=== PATIENT | male | born 1950 | race Caucasian/White ===

== ENCOUNTER → 2016-12-05 | Outpatient (CLI) | payer BC ==
[~2016-12-05] MED LIST: GADAVIST IV PRN
[2016-12-05 11:44] LABS: ISTAT HEMOGLOBIN 16.7 g/dl (14.0-18.0); ISTAT IONIZED CALCIUM 1.29 mmol/l (1.12-1.32)
--- NOTE | 2016-12-05 12:48 | DIAGNOSTIC IMAGING REPORT ---
Brain AND INTERNAL AUDITORY CANAL MRI WITH AND WITHOUT CONTRAST HISTORY: Tinnitus. *IAC'S* HEARING LOSS L EAR TECHNIQUE: Multiplanar multisequence MRI of the brain and internal auditory canals were performed both before and after the intravenous administration of contrast. COMPARISON STUDY: None. FINDINGS: There are no areas of restricted diffusion to suggest acute infarction. The midline structures are intact. The paranasal sinuses are clear. The mastoid air cells are clear. The ventricles and sulci are within normal limits for age. There is no mass, hematoma, midline shift. The major vascular flow-voids at the skull base are well maintained. Postcontrast sequences show no areas of abnormal enhancement. No masses or abnormal enhancement within the internal auditory canals. The 7th and 8th cranial nerves are normal in course and caliber IMPRESSION: No acute intracranial abnormality. Normal bilateral internal auditory canals. Electronically signed by: Medhat Cox M.D. 12/05/2016 12:47 PM Dictated Date/Time: 12/05/2016 12:36 PM
== END | disposition home or self-care (01) ==
LOC: C.MRI 11:01
PROVIDERS: ATTEND Otolaryngology
DX: H90.5 Unspecified sensorineural hearing loss (principal)

== ENCOUNTER 2017-04-06 22:37 | Emergency (ER) | payer BC ==
[~2017-04-06] VITALS: Ht 177.8 cm; Wt 100.0 kg
[2017-04-06 22:55] VITALS: TEMP 36.8; Ht 177.8 cm; Wt 100.0 kg
--- NOTE | 2017-04-06 23:56 | EMERGENCY ROOM VISIT NOTE ---
History Report prepared by Raquel: Obdulio Howard Under the Supervision of: Christos Mckenna.O. First contact with patient: 23:48 Chief Complaint: HEAD INJURY (MINOR) Stated Complaint: HIT HEAD ON ICE History of Present Illness The patient is a 67 year old male who presents to the Emergency Room with complaints of headache and neck pain beginning after a fall several hours ago. He notes his pain radiates down through his shoulders down to his forearms. The patient reports he tried taking Advil, but it did not help his symptoms. The patient states he was getting out of the car earlier and slipped on ice. He reports he fell and hit his head. The patient notes he did not lose consciousness, but he does not remember anything that occurred during the incident and an hour after. She states after that his memory returned and he answered questions normally. The patient's states he developed a bloody nose after falling. This has since resolved. She reports he tried to get up and slipped and fell again. The notes he does not remember have two people help him up. He denies dizziness, lightheadedness, blurry vision, nausea, double vision, a history of concussions, numbness, tinging, chest pain, abdominal pain, hip pain, knee pain, ankle pain, and taking blood thinners other than aspirin. Source of History: patient Onset: few hours ago Position: shoulder (bilateral) Associated Symptoms: No chest pain, No nausea, No abdominal pain, No numbness Note: Associated symptoms: hitting his head, pain radiating to his forearms, no memory of the accident and 1 hour after Denies: dizziness, lightheadedness, blurry vision, double vision, a history of concussions, tinging, hip pain, knee pain, ankle pain Review of Systems See HPI for pertinent positives & negatives. A total of 10 systems reviewed and were otherwise negative. Past Medical & Surgical Medical Problems: (1) No Known Active Medical Problems Family History Hypertension Kidney disease Kidney stones Social History Smoking Status: Never Smoker Smokeless Tobacco Use: No Alcohol Use: none Marital Status: Housing Status: lives with significant other Occupation Status: employed Current/Historical Medications Scheduled B-Complex Vitamins (Vitamin B Complex), 1 TAB PO DAILY Carbidopa/Levodopa (Sinemet 25MG/100MG), 2 TABS PO QID Carbidopa/Levodopa (Sinemet Cr 25MG/100MG), 1 TAB PO HS Flaxseed (Linseed) (Flax Seed Oil), 1 CAP PO DAILY Garlic (Garlic), 2,000 MG PO DAILY Melatonin (Melatonin Maximum Strengt), 1-2 TAB PO HS Multivitamin (Multivitamin), 1 TAB PO DAILY Benkelman-3 Fatty Acids (Fish Oil), 1,000 MG PO DAILY Rasagiline Mesylate (Azilect), 1 MG PO DAILY Simvastatin (Zocor), 20 MG PO QPM Allergies Coded Allergies: No Known Allergies (Unverified , 12/05/16) Physical Exam Vital Signs Date Time Temp Pulse Resp B/P (MAP) Pulse Ox O2 Delivery O2 Flow Rate FiO2 04/07/17 02:00 70 16 139/87 95 04/07/17 00:37 64 20 142/81 97 Room Air 04/06/17 22:55 36.8 72 20 152/87 95 Room Air Physical Exam GENERAL: alert, well appearing, well nourished, no distress, non-toxic EYE EXAM: normal conjunctiva, PERRL and EOM's grossly intact HEAD: Normocephalic and atraumatic OROPHARYNX: no exudate, no erythema, lips, buccal mucosa, and tongue normal and mucous membranes are moist NECK: supple, no nuchal rigidity, no adenopathy, non-tender LUNGS: Clear to auscultation. Normal chest wall mechanics HEART: no murmurs, S1 normal and S2 normal ABDOMEN: abdomen soft, non-tender, normo-active bowel sounds, no masses, no rebound or guarding. BACK: Back is symmetrical on inspection and there is no deformity, no midline tenderness, no CVA tenderness. SKIN: no rashes and no bruising UPPER EXTREMITIES: upper extremities are grossly normal. 5 out of 5 strength bilateral upper extremities, normal sensation, full range of motion, normal pulses. No reproducible pain on range of motion testing or palpation. No evidence of trauma or injury to upper extremity bilaterally. LOWER EXTREMITIES: No pitting edema. No evidence of trauma or injury, full range of motion, normal pulses. NEURO EXAM: Normal sensorium, cranial nerves II-XII intact, normal speech, no weakness of arms, no weakness of legs. Medical Decision & Procedures ER Provider Diagnostic Interpretation: CT:Per my review, radiologist interpretation. CT C SPINE: Degenerative changes without evidence of acute fracture. Heterogeneous thyroid. Radiologist: Carmen Martínez MD Study ready at 0044 and initial results transmitted at 0134. CT HEAD: No intracranial hemorrhage or skull fracture. Radiologist: Carmen Martínez MD Study ready at 0044 and initial results transmitted at 0130. ED Course 2351: The patient was evaluated in room C10. A complete history and physical exam was performed. 0148: Upon reevaluation, the patient is feeling better. I discussed the findings and the treatment plan with the patient. He verbalizes agreement and understanding. The patient was discharged home. Medical Decision Differential diagnoses include major intracranial, cervical, spinal, thoracic, abdominal, pelvic and neurologic injury. Fracture, contusion, sprain, strain, laceration, abrasions included as well. Patient well-appearing here, no focal neuro deficits noted. No obvious evidence of trauma on bedside exam, imaging reassuring. Vital signs stable throughout. Discussed with patient and follow-up with family doctor as a precaution, symptoms of concussion, symptoms to watch and return for, postconcussion syndrome, they verbalized understanding were agreeable with plan. Patient not anticoagulated and I feel low risk for occult intracranial hemorrhage. I do not suspect any additional occult traumatic injury. No obvious evidence of spinal cord injury, CT negative, full range of motion, normal strength, normal sensory exam in upper extremities also. No symptoms of weakness or paresthesias in any extremity. Head Trauma GCS Score: 15 Medication Reconcilliation Current Medication List: was personally reviewed by me Blood Pressure Screening Patient's blood pressure: Elevated blood pressure Blood pressure disposition: Elevated BP felt to be situational Impression Primary Impression: Closed head injury Additional Impression: Concussion Scribe Attestation The scribe's documentation has been prepared under my direction and personally reviewed by me in its entirety. I confirm that the note above accurately reflects all work, treatment, procedures, and medical decision making performed by me. Departure Information Dispostion Home / Self-Care Referrals Collin Elder M.D. (PCP) Forms HOME CARE DOCUMENTATION FORM, IMPORTANT VISIT INFORMATION Patient Instructions ED Concussion, ED Head Injury Closed, [facility] Additional Instructions Please drink plenty of water to stay well-hydrated. You may use Tylenol and ibuprofen as needed for pain. Please follow up with your family doctor as a precaution. If you have any worsening headaches, develop dizziness, vision changes, neck or back pain, feel unsteady when he walk, nausea or vomiting, or you've any other new concerns, please return to the emergency room. Problem Qualifiers Primary Impression: Closed head injury Encounter type: initial encounter Qualified Codes: S09.90XA - Unspecified injury of head, initial encounter Additional Impression: Concussion Encounter type: initial encounter Loss of consciousness presence/duration: without LOC Qualified Codes: S06.0X0A - Concussion without loss of consciousness, initial encounter
[2017-04-07] MEDS ORDERED: CARB25TA12 PO (00:08)
[2017-04-07] MEDS ORDERED: CARB25TA16 PO (00:08)
[2017-04-07] MEDS ORDERED: OMEG10002 PO (00:09)
[2017-04-07] MEDS ORDERED: [UNRECOGNIZED DRUG - CODE] PO (00:09)
[2017-04-07] MEDS ORDERED: FLAX1CAP11 PO (00:09)
[2017-04-07] MEDS ORDERED: MELATAB2 PO (00:11)
[2017-04-07] MEDS ORDERED: MULT-506 PO (00:11)
[2017-04-07] MEDS ORDERED: B-COTAB18 PO (00:11)
[2017-04-07] MEDS ORDERED: SIMV20TA2 PO (00:11)
[2017-04-07] MEDS ORDERED: RASA1TAB PO (00:11)
[2017-04-07 02:00] VITALS: BP 139/87; PULSE 70; O2SAT 95
--- NOTE | 2017-04-07 06:57 | DIAGNOSTIC IMAGING REPORT ---
HEAD WITHOUT CONTRAST (CT) CT DOSE: 1172.95 mGy.cm HISTORY: Trauma head injury, amnesia TECHNIQUE: Multiaxial CT images of the head were performed without the use of intravenous contrast. A dose lowering technique was utilized adhering to the principles of ALARA. Comparison: None. Findings: The paranasal sinuses and mastoid air cells are clear. The calvarium and skull base are intact. The ventricles and sulci are within normal limits. There is no mass, hematoma, midline shift, or acute infarct. Impression: No acute intracranial abnormality. The above report was generated using voice recognition software. It may contain grammatical, syntax or spelling errors. Electronically signed by: Herminio Polo M.D. 04/07/2017 6:56 AM Dictated Date/Time: 04/07/2017 6:55 AM
--- NOTE | 2017-04-07 07:34 | DIAGNOSTIC IMAGING REPORT ---
CT OF THE CERVICAL SPINE WITHOUT CONTRAST CLINICAL HISTORY: trauma, pain COMPARISON STUDY: No previous studies for comparison. TECHNIQUE: Helical axial images of the cervical spine were obtained without IV contrast. Sagittal and coronal reconstructions were viewed. A dose lowering technique was utilized adhering to the principles of ALARA. FINDINGS: Straightening of the normal cervical lordosis is noted. The craniocervical junction is intact. There is no acute cervical spine fracture. Moderate multilevel degenerative disc disease is noted with mild multilevel facet arthrosis. There is no prevertebral edema. IMPRESSION: No acute cervical spine fracture or subluxation. Electronically signed by: Robert Concepcion M.D. 04/07/2017 7:32 AM Dictated Date/Time: 04/07/2017 7:31 AM
== END 2017-04-07 02:00 | disposition home or self-care (01) ==
LOC: C.EDB 22:37 → C.EDC 04-07 02:00
DX: S06.0X0A Concussion without loss of consciousness, initial encounter (principal); Z79.899 Other long term (current) drug therapy; Z82.49 Family history of ischemic heart disease and other diseases of the circulatory system; Z84.1 Family history of disorders of kidney and ureter; W00.0XXA Fall on same level due to ice and snow, initial encounter

== ENCOUNTER → 2017-05-13 | Outpatient (CLI) | payer BC ==
[~2017-05-13] MED LIST changes: +B-COTAB18 PO; +CARB25TA12 PO; +CARB25TA16 PO; +FLAX1CAP11 PO; -GADAVIST IV PRN; +MELATAB2 PO; +MULT-506 PO; +OMEG10002 PO; +RASA1TAB PO; +SIMV20TA2 PO; +[UNRECOGNIZED DRUG - CODE] PO
[2017-05-13 09:52] LABS: BASO % 0.3 %; BASO ABS # 0.02 K/uL (0-0.2); EOS % 2.1 %; EOS ABS # 0.14 K/uL (0-0.5); HEMATOCRIT 46.6 % (42-52); HEMOGLOBIN 16.1 g/dL (14.0-18.0); IG# 0.02 K/uL (0.00-0.02); LYMPH % 30.4 %; LYMPH ABS # 2.03 K/uL (1.2-3.4); MEAN CELL VOLUME 89.6 fL (80-100); MEAN CORPUSCULAR HGB CONC 34.5 g/dl (32-36); MEAN PLATELET VOLUME 9.6 fL (7.4-10.4); MONO ABS # 0.47 K/uL (0.11-0.59); NEUT % 59.9 %; PLATELET COUNT 216 K/uL (130-400); RED CELL DISTRIBUTION WIDTH CV 13.1 % (11.5-14.5); RED CELL DISTRIBUTION WIDTH SD 42.8 fL (36.4-46.3); WHITE BLOOD COUNT 6.68 K/uL (4.8-10.8)
[2017-05-13 10:15] LABS: HEMOGLOBIN A1C 5.5 % (4.5-5.6)
[2017-05-13 10:57] LABS: ALBUMIN 3.9 gm/dl (3.4-5.0); ALT/SGPT 14 U/L (12-78); AST/SGOT 24 U/L (15-37); BLOOD UREA NITROGEN 11 mg/dl (7-18); CARBON DIOXIDE 24 mmol/L (21-32); CREATININE 0.94 mg/dl (0.60-1.40); GLUCOSE 115 mg/dl (70-99); SODIUM 139 mmol/L (136-145)
[2017-05-13 11:08] LABS: ALKALINE PHOSPHATASE 75 U/L (45-117); CHOLESTEROL 127 mg/dl (0-200); LDL CHOLESTEROL CALCULATED 65 mg/dl; TOTAL PROTEIN 7.2 gm/dl (6.4-8.2)
[2017-05-13 11:35] LABS: CALCIUM 9.2 mg/dl (8.5-10.1)
== END | disposition home or self-care (01) ==
LOC: C.LAB 07:08
PROVIDERS: ATTEND Internal Medicine
DX: Z00.00 Encounter for general adult medical examination without abnormal findings (principal); E78.5 Hyperlipidemia, unspecified; N40.0 Benign prostatic hyperplasia without lower urinary tract symptoms; R73.01 Impaired fasting glucose; D12.6 Benign neoplasm of colon, unspecified; G20 Parkinson's disease; E04.0 Nontoxic diffuse goiter